=== PATIENT | male | born 1965 | race Caucasian/White ===

== ENCOUNTER 2023-05-04 22:38 | Emergency (ER) | payer MEDICAID, OTHER ==
[~2023-05-04] VITALS: Ht 188 cm; Wt 113.6 kg
[2023-05-04 23:02] VITALS: BP 135/81; PULSE 81; RESP 16
[2023-05-04] MEDS ORDERED: HYDR-4527 PO (23:16)
[2023-05-04] MEDS ORDERED: LURA20TA2 PO (23:16)
[2023-05-05 00:41] LABS: BASOPHILS % (AUTO) 1.2 % (0.0-2.0); EOSINOPHILS % (AUTO) 1.5 % (1.0-6.0); HEMATOCRIT 39.9 % (41-53); HEMOGLOBIN 13.7 g/dL (13.5-17.5); LYMPHOCYTES # (AUTO) 1.6 K/uL (1.0-4.8); LYMPHOCYTES % (AUTO) 29.3 % (22.0-44.0); MEAN CORPUSCULAR HEMOGLOBIN 30.7 pg (26.0-34.0); MEAN CORPUSCULAR HGB CONC 34.4 G/dL (31.0-37.0); MEAN CORPUSCULAR VOLUME 89 fL (80-100); MONOCYTES # (AUTO) 0.4 K/uL (0.1-1.0); NEUTROPHILS # (AUTO) 3.4 K/uL (1.8-7.7); PLATELET COUNT (AUTO) 186 K/uL (150-450); RED BLOOD CELL COUNT(AUTO) 4.47 MIL/uL (4.50-5.90); RED CELL DISTRIBUTION WIDTH 17.4 % (11.5-14.5); WHITE BLOOD COUNT (AUTO) 5.6 K/uL (4.5-11.0)
[2023-05-05 00:51] LABS: CALCIUM, TOTAL 8.7 mg/dL (8.8-10.5); CREATININE 1.28 mg/dL (0.60-1.30); POTASSIUM 4.5 mmol/L (3.5-5.1)
[2023-05-05 00:57] LABS: BILIRUBIN,TOTAL 0.5 mg/dL (0.1-1.0); TOTAL PROTEIN, SERUM 6.7 g/dL (6.4-8.2)
[2023-05-05 01:38] LABS: URIC ACID 5.8 mg/dL (2.6-7.2)
== END 2023-05-05 02:30 | disposition home or self-care (01) ==
LOC: EMS 22:54
DX: F15.10 Other stimulant abuse, uncomplicated (principal); F32.A Depression, unspecified; Z98.890 Other specified postprocedural states
CPT/HCPCS: 99284; 80053; 84550; 85025; 36415; G0480

== ENCOUNTER 2023-05-10 18:53 | Inpatient (IN) | payer MEDICAID, OTHER ==
[~2023-05-10] VITALS: Ht 189.2 cm; Wt 110.7 kg
[~2023-05-10 18:53] MED LIST: HYDR-4527 PO; LURA20TA2 PO
[2023-05-10] MEDS ORDERED: LOSA100T59 PO (19:47)
[2023-05-10 20:47] LABS: BASOPHILS % (AUTO) 0.8 % (0.0-2.0); EOSINOPHILS % (AUTO) 1.3 % (1.0-6.0); HEMATOCRIT 44.4 % (41-53); HEMOGLOBIN 14.9 g/dL (13.5-17.5); LYMPHOCYTES # (AUTO) 1.6 K/uL (1.0-4.8); LYMPHOCYTES % (AUTO) 30.2 % (22.0-44.0); MEAN CORPUSCULAR HEMOGLOBIN 29.8 pg (26.0-34.0); MEAN CORPUSCULAR HGB CONC 33.5 G/dL (31.0-37.0); MEAN CORPUSCULAR VOLUME 89 fL (80-100); MONOCYTES # (AUTO) 0.3 K/uL (0.1-1.0); MONOCYTES % (AUTO) 5.1 % (2.0-9.0); NEUTROPHILS # (AUTO) 3.3 K/uL (1.8-7.7); NEUTROPHILS % (AUTO) 62.6 % (40.0-70.0); PLATELET COUNT (AUTO) 210 K/uL (150-450); RED BLOOD CELL COUNT(AUTO) 4.99 MIL/uL (4.50-5.90); RED CELL DISTRIBUTION WIDTH 16.8 % (11.5-14.5); WHITE BLOOD COUNT (AUTO) 5.2 K/uL (4.5-11.0)
[2023-05-10 20:53] LABS: PH,URINE DRUG SCREEN 5.5 (5.0-8.0)
[2023-05-10 20:56] LABS: CALCIUM, TOTAL 8.7 mg/dL (8.8-10.5); CREATININE 1.54 mg/dL (0.60-1.30)
[2023-05-10 21:00] LABS: AMPHET/METH SCREEN,URINE NEGATIVE (NEGATIVE); BARBITURATE SCREEN, URINE NEGATIVE (NEGATIVE); BENZODIAZEPINES SCREEN,URINE NEGATIVE (NEGATIVE); CANNABINOID SCREEN,URINE NEGATIVE (NEGATIVE); COCAINE SCREEN,URINE NEGATIVE (NEGATIVE); METHADONE SCREEN, URINE NEGATIVE (NEGATIVE); OPIATE SCREEN,URINE NEGATIVE (NEGATIVE); PHENCYCLIDINE SCREEN,URINE NEGATIVE (NEGATIVE)
[2023-05-10 21:02] LABS: ALBUMIN 3.2 g/dL (3.4-5.0); BILIRUBIN,TOTAL 0.3 mg/dL (0.1-1.0); TOTAL PROTEIN, SERUM 7.2 g/dL (6.4-8.2)
[2023-05-10 21:04] LABS: ALCOHOL, URINE DRUG SCREEN POSITIVE (NEGATIVE)
[2023-05-11] MEDS ORDERED: LURASIDONE HCL 20 MG TABLET PO ONE (01:15)
[2023-05-11] MEDS ORDERED: LORazepam 2 MG TABLET PO ONE (01:15)
[2023-05-11 02:31] LABS: COVID AG,FIA SOURCE NASAL SWAB
[2023-05-11 02:57] LABS: SARS-COV2 (COVID) ANTIGEN,FIA Negative (Negative)
[2023-05-11] MEDS ORDERED: HALOPERIDOL 5 MG TABLET PO PRN (09:00)
[2023-05-11] MEDS ORDERED: ZOLPIDEM TARTRATE 10 MG TABLET PO PRN (09:00)
[2023-05-11] MEDS ORDERED: LOSARTAN POTASSIUM 50 MG TABLET PO ONE (11:30)
[2023-05-11] MEDS ORDERED: AmLODIPine BESYLATE 10 MG TABLET PO ONE (11:30)
[2023-05-11] MEDS: LORazepam 2 MG TABLET PO PRN ×2 (11:53→22:02)
[2023-05-11 20:32] VITALS: BP 142/81; PULSE 86; RESP 18; TEMP 98.3; O2SAT 96
[2023-05-12] MEDS: LOSARTAN POTASSIUM 25 MG TABLET PO SCH (08:18)
[2023-05-12] MEDS: AmLODIPine BESYLATE 10 MG TABLET PO SCH (08:18)
[2023-05-12 10:49] VITALS: BP 157/94; PULSE 84; RESP 19; TEMP 97.8; O2SAT 98
[2023-05-12 20:29] VITALS: BP 136/84; PULSE 88; RESP 18; TEMP 97.6
[2023-05-12] MEDS: HydrOXYzine HCL 25 MG TABLET PO PRN (20:36)
[2023-05-12] MEDS: LURASIDONE HCL 20 MG TABLET PO SCH (20:36)
[2023-05-13] MEDS: LOSARTAN POTASSIUM 25 MG TABLET PO SCH (08:14)
[2023-05-13] MEDS: AmLODIPine BESYLATE 10 MG TABLET PO SCH (08:14)
[2023-05-13 08:24] VITALS: BP 156/101; PULSE 88; RESP 18; TEMP 98.9; O2SAT 97
[2023-05-13 14:19] VITALS: BP 138/78; PULSE 85; RESP 18
[2023-05-13] MEDS: LURASIDONE HCL 20 MG TABLET PO SCH (20:28)
[2023-05-13] MEDS: HydrOXYzine HCL 25 MG TABLET PO PRN (20:29)
[2023-05-13] MEDS: ACETAMINOPHEN 325 MG TABLET PO PRN (21:10)
[2023-05-13 21:38] VITALS: BP 143/90; PULSE 83; RESP 18; TEMP 97.7; O2SAT 97
[2023-05-14] MEDS: AmLODIPine BESYLATE 10 MG TABLET PO SCH (08:51)
[2023-05-14] MEDS: LOSARTAN POTASSIUM 25 MG TABLET PO SCH (08:51)
[2023-05-14 09:38] VITALS: BP 124/69; PULSE 78; RESP 18; TEMP 97.8; O2SAT 98
[2023-05-14 10:57] VITALS: RESP 18
[2023-05-14] MEDS: ACETAMINOPHEN 325 MG TABLET PO PRN ×2 (10:57→20:22)
[2023-05-14 11:57] VITALS: RESP 18
[2023-05-14 20:18] VITALS: BP 132/72; PULSE 82; RESP 18; TEMP 97.8; O2SAT 97
[2023-05-14] MEDS: LURASIDONE HCL 20 MG TABLET PO SCH (20:37)
[2023-05-14 21:22] VITALS: RESP 18
[2023-05-15 08:21] VITALS: RESP 18
[2023-05-15] MEDS: LOSARTAN POTASSIUM 25 MG TABLET PO SCH (08:23)
[2023-05-15 08:24] VITALS: BP 137/82; PULSE 83; RESP 18; TEMP 97.7; O2SAT 97
[2023-05-15] MEDS: AmLODIPine BESYLATE 10 MG TABLET PO SCH (08:24)
[2023-05-15] MEDS: ACETAMINOPHEN 325 MG TABLET PO PRN (08:24)
[2023-05-15 09:21] VITALS: RESP 18
[2023-05-15] MEDS ORDERED: LURA20TA2 PO (12:50)
== END 2023-05-15 12:40 | disposition home or self-care (01) | DRG 753 ==
LOC: EMS 19:01 → B2S 05-11 08:31
PROVIDERS: ADMIT Psychiatry & Neurology Child & Adolescent Psychiatry; ATTEND Psychiatry & Neurology Child & Adolescent Psychiatry
DX: F31.2 Bipolar disorder, current episode manic severe with psychotic features (principal); R45.851 Suicidal ideations; F10.229 Alcohol dependence with intoxication, unspecified; N18.9 Chronic kidney disease, unspecified; Z20.822 Contact with and (suspected) exposure to COVID-19; I12.9 Hypertensive chronic kidney disease with stage 1 through stage 4 chronic kidney disease, or unspecified chronic kidney disease; M10.9 Gout, unspecified; F15.90 Other stimulant use, unspecified, uncomplicated; Z59.00 Homelessness unspecified
CPT/HCPCS: 80053; 80307; 85025; 99285; G0480; Q9967

== ENCOUNTER 2023-06-19 03:36 | Emergency (ER) | payer MEDICAID, OTHER ==
[~2023-06-19] VITALS: Ht 188 cm; Wt 109.1 kg
[~2023-06-19 03:36] MED LIST changes: -HYDR-4527 PO
[2023-06-19 03:43] VITALS: TEMP 98.4
[2023-06-19 04:24] LABS: BASOPHILS % (AUTO) 1.1 % (0.0-2.0); EOSINOPHILS % (AUTO) 0.7 % (1.0-6.0); HEMATOCRIT 42.6 % (41-53); HEMOGLOBIN 14.6 g/dL (13.5-17.5); LYMPHOCYTES # (AUTO) 1.8 K/uL (1.0-4.8); LYMPHOCYTES % (AUTO) 34.3 % (22.0-44.0); MEAN CORPUSCULAR HEMOGLOBIN 30.8 pg (26.0-34.0); MEAN CORPUSCULAR HGB CONC 34.3 G/dL (31.0-37.0); MEAN CORPUSCULAR VOLUME 90 fL (80-100); MONOCYTES # (AUTO) 0.4 K/uL (0.1-1.0); MONOCYTES % (AUTO) 7.9 % (2.0-9.0); PLATELET COUNT (AUTO) 238 K/uL (150-450); RED BLOOD CELL COUNT(AUTO) 4.76 MIL/uL (4.50-5.90); RED CELL DISTRIBUTION WIDTH 16.3 % (11.5-14.5); WHITE BLOOD COUNT (AUTO) 5.3 K/uL (4.5-11.0)
[2023-06-19 04:27] LABS: CALCIUM, TOTAL 8.7 mg/dL (8.8-10.5); CREATININE 1.41 mg/dL (0.60-1.30)
[2023-06-19 04:33] LABS: BILIRUBIN,TOTAL 0.5 mg/dL (0.1-1.0); TOTAL PROTEIN, SERUM 7.1 g/dL (6.4-8.2)
[2023-06-19 06:37] LABS: ALCOHOL, URINE DRUG SCREEN POSITIVE (NEGATIVE); AMPHET/METH SCREEN,URINE NEGATIVE (NEGATIVE); BARBITURATE SCREEN, URINE NEGATIVE (NEGATIVE); BENZODIAZEPINES SCREEN,URINE NEGATIVE (NEGATIVE); CANNABINOID SCREEN,URINE NEGATIVE (NEGATIVE); COCAINE SCREEN,URINE NEGATIVE (NEGATIVE); METHADONE SCREEN, URINE NEGATIVE (NEGATIVE); OPIATE SCREEN,URINE NEGATIVE (NEGATIVE); PHENCYCLIDINE SCREEN,URINE NEGATIVE (NEGATIVE)
[2023-06-19 06:47] LABS: COVID AG,FIA SOURCE NASAL SWAB
[2023-06-19 08:38] LABS: SARS-COV2 (COVID) ANTIGEN,FIA Negative (Negative)
[2023-06-19 09:00] VITALS: BP 122/89; PULSE 99; RESP 12
[2023-06-19] MEDS: ChlordiazePOXIDE HCL 10 MG CAPSULE PO ONE (09:04)
== END 2023-06-19 10:41 | disposition home or self-care (01) ==
LOC: EMS 03:37
DX: F10.229 Alcohol dependence with intoxication, unspecified (principal); F31.9 Bipolar disorder, unspecified; I10 Essential (primary) hypertension; F15.90 Other stimulant use, unspecified, uncomplicated; Z98.890 Other specified postprocedural states; Z20.822 Contact with and (suspected) exposure to COVID-19
CPT/HCPCS: 99285; 87426; 80053; 85025; 36415; 80307; G0480

== ENCOUNTER 2023-08-25 22:27 | Emergency (ER) | payer OTHER ==
[~2023-08-25] VITALS: Ht 188 cm; Wt 113.6 kg
[2023-08-25 23:43] VITALS: BP 142/83; PULSE 71; RESP 16; TEMP 97.9
[2023-08-25] MEDS ORDERED: AMLO10TA55 PO (23:51)
[2023-08-25] MEDS ORDERED: LOSA100T59 PO (23:51)
[2023-08-25] MEDS ORDERED: HYDR25TA82 PO (23:51)
[2023-08-25] MEDS ORDERED: ALLO100T PO (23:51)
[2023-08-26 00:42] LABS: BASOPHILS % (AUTO) 0.8 % (0.0-2.0); HEMATOCRIT 37.5 % (41-53); HEMOGLOBIN 12.9 g/dL (13.5-17.5); LYMPHOCYTES # (AUTO) 1.8 K/uL (1.0-4.8); LYMPHOCYTES % (AUTO) 29.2 % (22.0-44.0); MEAN CORPUSCULAR HEMOGLOBIN 31.3 pg (26.0-34.0); MEAN CORPUSCULAR HGB CONC 34.5 G/dL (31.0-37.0); MEAN CORPUSCULAR VOLUME 91 fL (80-100); MONOCYTES # (AUTO) 0.4 K/uL (0.1-1.0); MONOCYTES % (AUTO) 7.1 % (2.0-9.0); NEUTROPHILS # (AUTO) 3.8 K/uL (1.8-7.7); NEUTROPHILS % (AUTO) 61.9 % (40.0-70.0); PLATELET COUNT (AUTO) 147 K/uL (150-450); RED BLOOD CELL COUNT(AUTO) 4.12 MIL/uL (4.50-5.90); RED CELL DISTRIBUTION WIDTH 15.1 % (11.5-14.5); WHITE BLOOD COUNT (AUTO) 6.2 K/uL (4.5-11.0)
[2023-08-26 00:50] LABS: CALCIUM, TOTAL 8.1 mg/dL (8.8-10.5); CREATININE 1.37 mg/dL (0.60-1.30); POTASSIUM 3.9 mmol/L (3.5-5.1)
[2023-08-26 00:52] LABS: PH,URINE DRUG SCREEN 5.5 (5.0-8.0)
[2023-08-26 00:56] LABS: ALBUMIN 2.9 g/dL (3.4-5.0); BILIRUBIN,TOTAL 0.7 mg/dL (0.1-1.0)
[2023-08-26 00:59] LABS: AMPHET/METH SCREEN,URINE NEGATIVE (NEGATIVE); BARBITURATE SCREEN, URINE NEGATIVE (NEGATIVE); BENZODIAZEPINES SCREEN,URINE NEGATIVE (NEGATIVE); CANNABINOID SCREEN,URINE NEGATIVE (NEGATIVE); COCAINE SCREEN,URINE NEGATIVE (NEGATIVE); METHADONE SCREEN, URINE NEGATIVE (NEGATIVE); OPIATE SCREEN,URINE NEGATIVE (NEGATIVE); PHENCYCLIDINE SCREEN,URINE NEGATIVE (NEGATIVE)
[2023-08-26 01:01] LABS: ALCOHOL, URINE DRUG SCREEN POSITIVE (NEGATIVE)
== END 2023-08-26 05:14 | disposition home or self-care (01) ==
LOC: EMS 22:28
DX: F10.129 Alcohol abuse with intoxication, unspecified (principal); I10 Essential (primary) hypertension; F32.A Depression, unspecified; M10.9 Gout, unspecified; F15.90 Other stimulant use, unspecified, uncomplicated
CPT/HCPCS: 99283; 80053; 85025; 36415; 80307; G0480

== ENCOUNTER 2023-08-27 20:57 | Inpatient (IN) | payer MEDICAID, OTHER ==
[~2023-08-27] VITALS: Ht 188 cm; Wt 111.3 kg
[~2023-08-27 20:57] MED LIST changes: +ALLO100T PO; +AMLO10TA55 PO; +HYDR25TA82 PO; +LOSA100T59 PO
[2023-08-28 03:35] LABS: BASOPHILS % (AUTO) 0.6 % (0.0-2.0); EOSINOPHILS % (AUTO) 0.1 % (1.0-6.0); HEMATOCRIT 44.8 % (41-53); HEMOGLOBIN 15.2 g/dL (13.5-17.5); LYMPHOCYTES # (AUTO) 0.8 K/uL (1.0-4.8); LYMPHOCYTES % (AUTO) 10.2 % (22.0-44.0); MEAN CORPUSCULAR HEMOGLOBIN 31.6 pg (26.0-34.0); MEAN CORPUSCULAR HGB CONC 33.9 G/dL (31.0-37.0); MEAN CORPUSCULAR VOLUME 93 fL (80-100); MONOCYTES # (AUTO) 0.6 K/uL (0.1-1.0); MONOCYTES % (AUTO) 7.3 % (2.0-9.0); NEUTROPHILS # (AUTO) 6.4 K/uL (1.8-7.7); NEUTROPHILS % (AUTO) 81.8 % (40.0-70.0); PLATELET COUNT (AUTO) 224 K/uL (150-450); RED CELL DISTRIBUTION WIDTH 15.5 % (11.5-14.5); WHITE BLOOD COUNT (AUTO) 7.8 K/uL (4.5-11.0)
[2023-08-28 03:46] LABS: CALCIUM, TOTAL 9.6 mg/dL (8.8-10.5); CREATININE 2.01 mg/dL (0.60-1.30); POTASSIUM 4.2 mmol/L (3.5-5.1)
[2023-08-28 03:52] LABS: ALBUMIN 3.6 g/dL (3.4-5.0); BILIRUBIN,TOTAL 1.1 mg/dL (0.1-1.0); TOTAL PROTEIN, SERUM 8.1 g/dL (6.4-8.2)
[2023-08-28 07:42] LABS: COVID AG,FIA SOURCE NASAL SWAB
[2023-08-28 07:52] LABS: ALCOHOL, URINE DRUG SCREEN NEGATIVE (NEGATIVE); AMPHET/METH SCREEN,URINE NEGATIVE (NEGATIVE); BARBITURATE SCREEN, URINE NEGATIVE (NEGATIVE); BENZODIAZEPINES SCREEN,URINE NEGATIVE (NEGATIVE); CANNABINOID SCREEN,URINE NEGATIVE (NEGATIVE); COCAINE SCREEN,URINE NEGATIVE (NEGATIVE); METHADONE SCREEN, URINE NEGATIVE (NEGATIVE); OPIATE SCREEN,URINE NEGATIVE (NEGATIVE); PHENCYCLIDINE SCREEN,URINE NEGATIVE (NEGATIVE)
[2023-08-28 08:04] LABS: SARS-COV2 (COVID) ANTIGEN,FIA Negative (Negative)
[2023-08-28 09:04] LABS: LITHIUM 0.5 mmol/L (0.60-1.20)
[2023-08-28] MEDS: LORazepam 1 MG TABLET PO ONE (10:51)
[2023-08-28] MEDS: ONDANSETRON HCL 4 MG TABLET PO ONE (10:57)
[2023-08-28] MEDS ORDERED: ZOLPIDEM TARTRATE 10 MG TABLET PO PRN (11:15)
[2023-08-28] MEDS ORDERED: LORazepam 1 MG TABLET PO PRN (11:15)
[2023-08-28] MEDS ORDERED: HALOPERIDOL 5 MG TABLET PO PRN (11:15)
[2023-08-28 14:21] VITALS: BP 125/64; PULSE 101; RESP 20; TEMP 98.1
[2023-08-28 14:35] VITALS: BP 133/83; PULSE 96; RESP 18; TEMP 97.3
[2023-08-28] MEDS ORDERED: ONDANSETRON HCL 4 MG/2 ML VIAL IM PRN (17:15)
[2023-08-28] MEDS ORDERED: ONDANSETRON HCL 4 MG TABLET PO PRN (17:15)
[2023-08-28] MEDS: AmLODIPine BESYLATE 10 MG TABLET PO SCH (18:15)
[2023-08-28 21:05] VITALS: BP 140/93; PULSE 97; RESP 18; TEMP 97.5
[2023-08-29] MEDS ORDERED: ACETAMINOPHEN 325 MG TABLET PO PRN (06:45)
[2023-08-29] MEDS ORDERED: CloNIDine HCL 0.1 MG TABLET PO PRN (06:45)
[2023-08-29] MEDS ORDERED: NICOTINE 14 MG/24 HOUR PATCH TD PRN (06:45)
[2023-08-29] MEDS ORDERED: ALBUTEROL SULFATE HFA 90 MCG/PUFF 8 GM INHALER IH PRN (06:45)
[2023-08-29] MEDS ORDERED: MAG HYDROX/ALUMINUM HYD/SIMETH ES 30 ML SUSPENSION UDCUP PO PRN (06:45)
[2023-08-29] MEDS ORDERED: ONDANSETRON HCL 4 MG TABLET PO PRN (06:45)
[2023-08-29] MEDS ORDERED: PETROLATUM,WHITE 28 GM JELLY TP PRN (06:45)
[2023-08-29] MEDS ORDERED: GuaiFENesin/D-METHORPHAN [SUGAR-FREE] 200-20MG/10 ML SYRUP UDCUP PO PRN (06:45)
[2023-08-29] MEDS ORDERED: DOCUSATE SODIUM 100 MG CAPSULE PO PRN (06:45)
[2023-08-29] MEDS ORDERED: LOPERAMIDE HCL 2 MG CAPSULE PO PRN (06:45)
[2023-08-29] MEDS ORDERED: MAGNESIUM HYDROXIDE SUSPENSION 30 ML UDCUP PO PRN (06:45)
[2023-08-29 08:52] VITALS: BP 124/76; PULSE 90; RESP 18; TEMP 97.8
[2023-08-29] MEDS: ALLOPURINOL 100 MG TABLET PO SCH (09:07)
[2023-08-29] MEDS: LURASIDONE HCL 20 MG TABLET PO SCH (17:21)
[2023-08-29] MEDS: HydrOXYzine HCL 25 MG TABLET PO SCH (20:54)
[2023-08-29 21:00] VITALS: BP 133/81; PULSE 81; RESP 17; TEMP 97.9
[2023-08-30 08:16] LABS: APPEARANCE,URINE HAZY (CLEAR); BILIRUBIN,URINE NEGATIVE (NEGATIVE); COLOR,URINE YELLOW (YELLOW); GLUCOSE, URINE (UA) NEGATIVE (NEGATIVE); KETONES,URINE NEGATIVE (NEGATIVE); LEUKOCYTE ESTERASE ,URINE LARGE (NEGATIVE); NITRATE,URINE NEGATIVE (NEGATIVE); OCCULT BLOOD,URINE MODERATE (NEGATIVE); PH,URINE 6.5 (5.0-8.0); PROTEIN,URINE 30-70 mg/dL (NEGATIVE); SPECIFIC GRAVITIY, URINE 1.018 (1.003-1.030); UROBILINOGEN,URINE <=1.0 mg/dL (<=1.0)
[2023-08-30 08:22] LABS: BACTERIA,URINE Moderate /HPF (None Seen)
[2023-08-30 08:35] VITALS: BP 158/99; PULSE 89; RESP 17; TEMP 97.2
[2023-08-30 08:44] LABS: CHOL/HDL RATIO 1.4 (4.2-7.3); THYROID STIMULATING HORMONE 6.07 uIU/mL (0.36-3.74)
[2023-08-30 20:39] VITALS: BP 142/67; PULSE 76; RESP 17; TEMP 97.6
[2023-08-31 08:12] LABS: CALCIUM, TOTAL 8.9 mg/dL (8.8-10.5); CREATININE 1.52 mg/dL (0.60-1.30); POTASSIUM 4.5 mmol/L (3.5-5.1)
[2023-08-31 10:45] VITALS: BP 135/70; PULSE 84; RESP 16; TEMP 98.2
[2023-08-31] MEDS ORDERED: HYDR-4527 PO (15:07)
[2023-08-31] MEDS ORDERED: LURA20TA2 PO (15:07)
== END 2023-08-31 16:00 | disposition home or self-care (01) | DRG 753 ==
LOC: EMS 21:01 → B2S 08-28 12:07
PROVIDERS: ADMIT Psychiatry & Neurology Psychiatry; ATTEND Psychiatry & Neurology Psychiatry
PROC: GZHZZZZ Group Psychotherapy (ICD-10-PCS; principal; 2023-08-29)
PROC: GZ51ZZZ Individual Psychotherapy, Behavioral (ICD-10-PCS; 2023-08-29)
DX: F31.5 Bipolar disorder, current episode depressed, severe, with psychotic features (principal); R45.851 Suicidal ideations; F29 Unspecified psychosis not due to a substance or known physiological condition; M10.9 Gout, unspecified; Z20.822 Contact with and (suspected) exposure to COVID-19; F15.10 Other stimulant abuse, uncomplicated; F10.10 Alcohol abuse, uncomplicated; I12.9 Hypertensive chronic kidney disease with stage 1 through stage 4 chronic kidney disease, or unspecified chronic kidney disease; N18.9 Chronic kidney disease, unspecified; F41.9 Anxiety disorder, unspecified
CPT/HCPCS: 80048; 80053; 80061; 80178; 80307; 81001; 83036; 84443; 85025; 87086; 87186; 99285; G0480; Q0162; Q9967